=== PATIENT | male | born 1940 | race Hispanic/Latino ===

== ENCOUNTER → 2017-06-04 | Day surgery (SDC) | payer OTHER ==
[2017-05-31 16:51] LABS: BASOPHILS # (AUTO) 0.1 (0.0-0.1); BASOPHILS % 0.7 % (0.0-1.0); EOSINOPHILS # (AUTO) 0.1 (0.0-0.4); EOSINOPHILS % 1.7 % (0.0-6.0); HEMATOCRIT 36.3 % (38.2-49.6); HEMOGLOBIN 12.2 g/dL (14.0-18.0); LYMPHOCYTES # (AUTO) 1.5 (1.0-3.2); LYMPHOCYTES % 22.3 % (18.0-39.1); MEAN CORPUSCULAR HEMOGLOBIN 28.3 pg (28-32); MEAN CORPUSCULAR HGB CONC 33.6 g/dL (31-35); MEAN CORPUSCULAR VOLUME 84.2 fL (81-99); MONOCYTES # (AUTO) 0.5 (0.2-0.8); MONOCYTES % 7.5 % (4.4-11.3); NEUTROPHILS # (AUTO) 4.7 (2.1-6.9); NEUTROPHILS % 67.5 % (38.7-80.0); PLATELET COUNT 244 x10e3/uL (140-360); RED BLOOD COUNT 4.31 x10e6/uL (4.3-5.7); RED CELL DISTRIBUTION WIDTH 13.1 % (11.7-14.4)
[~2017-06-04] MED LIST: BENAZEPRIL-HCT1 EAC3 PO; FENOFIBRATE145 MG PO; METOPROLOL SUCC25 MG PO; NEXIUM40 MG PO; PROPOFOL IV EMULSION 10 MG/ML 50 ML VIAL ONE; RENAVITE PO; SIMVASTATIN40 MG PO; SODIUM CHLORIDE 0.9% 500ML 500 ML ONE; TAMSULOSIN HCL0.4 MG PO; VITAMIN D32000 UNI1 PO
--- OUTSIDE RECORDS SUMMARY | 2017-06-04 11:40 | XMS REPORT | Clinical Summary ---
Author Author [facility] Address Unknown Phone Unavailable Care Team Providers Care Vending Machine Operator Name Role Phone PCP Unavailable Allergies No Known Allergies Current Medications Prescription Sig. Disp. Refills Start End Date Status Date tamsulosin (FLOMAX) 0.4 Take 0.4 mg by mouth Active mg Cp24 24 hr capsule daily . esomeprazole (NEXIUM) 40 Take 40 mg by mouth Active MG capsule daily. simvastatin (ZOCOR) 40 MG Take 40 mg by mouth Active tablet nightly. B-complex with vitamin C Take 1 tablet by mouth 30 tablet 11 09/12/19 09/12/19 Active (NEPHRO-DONATO) tablet daily. 17 18 fenofibrate (LOFIBRA) 54 Take 54 mg by mouth 09/12/19 Discontin MG tablet daily. 17 ued Active Problems Patient Care Coordination Note Dr. Rah Shepherd - PCP O: [phone] Dr. 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) 09/11/2016 Orders Only Transplant Hepatology Giles Liu MD Awaiting transplantation of kidney;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) 09/11/2016 Evaluation Transplant Giles Liu MD 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) (Primary Dx);Hyperlipidemia, unspecified hyperlipidemia type;Benign nodular prostatic hyperplasia without lower urinary tract symptoms;Pre-transplant evaluation for chronic kidney disease;Bilateral hearing loss, unspecified hearing loss type 09/11/2016 Evaluation Transplant Giles Liu MD 09/05/2016 Documentation Transplant Karla Forman 09/03/2016 Documentation Transplant Karla Forman 07/12/2016 Abstract Transplant Jason Coppola 07/11/2016 Telephone Transplant Jason Coppola Appointment after 06/03/2016 Family History Medical History Relation Name Comments Unremarkable Brother x5 Cancer Father skin cancer Kidney failure Paternal 2 uncles; live in [place] Uncle Cancer Sister Unremarkable Sister x3 Relation Name Status Comments Brother x5 Alive Father Mother Alive Paternal Uncle Sister Sister x3 Alive Social History Tobacco Use Types Packs/Day Years Used Date Former Smoker Cigarettes 1 15 Quit: 11/23/1984 Smokeless Tobacco: Never Used Alcohol Use Drinks/Week oz/Week Comments No Sex Assigned at Date Recorded Not on file Last Filed Vital Signs Vital Sign Reading Time Taken Blood Pressure 113/54 09/11/2016 2:19 PM CDT Pulse 88 09/11/2016 2:19 PM CDT Temperature 36.7 C (98.1 F) 09/11/2016 11:20 AM CDT Respiratory Rate 20 09/11/2016 2:19 PM CDT Oxygen Saturation - - Inhaled Oxygen - - Concentration Weight 70.5 kg (155 lb 8 oz) 09/11/2016 11:20 AM CDT Height 167.6 cm (5' 6") 09/11/2016 11:20 AM CDT Body Mass Index 25.1 09/11/2016 11:20 AM CDT Plan of Treatment Health Maintenance Due Date Last Done Comments INFLUENZA VACCINE 12/30/2016 Results * Flow PRA Class II (04/30/2017 11:32 AM) Component Value Ref Range Flow Class II Percent 0 Positive Flow Class Report Comments Specimen Performing Laboratory Blood [facility] HLA TESTING [facility] [place], [place]: [id number] [place] [address] * Flow PRA Class I (04/30/2017 11:32 AM) Component Value Ref Range Flow Class I Percent 0 Positive Flow Class Report Comments Specimen Performing Laboratory Blood [facility] [place] [place]: [id number] [place] [address] * Flow PRA Class I and II (01/08/2017 9:06 AM) Only the most recent of 3 results within the time period is included. Component Value Ref Range Date of Serum [id number] Serum# [id number] Flow PRA Class I and II See Scanned Report Specimen Performing Laboratory Blood [facility] IMMUNE EVALUATION LAB [facility] [place], [place]:BCM [address] [id number] * Stress Echo With Tracing (09/11/2016 1:48 PM) Specimen Performing Laboratory [facility]ocardiography [facility] [address] [facility] [address] [place] [id number] Voice:[phone] Transthoracic Echocardiogram Pat.Name:Perla MANN.ID:[id number] .Date: 09/11/2016 Refer.MD:GILES LIU Exam Time: 1:48:00 PMStudy Type:Echo Complete Height:66inWeight:156lb BSA: 1.8 k3SPHWqf:1940,76Y Sex: MALEBP: 124/71 HR:61 bpmSonogrphr: Margret Us RDCS Pat. Stat.:OutpatientRoom:OP Reason for Study:Pre-surgical evaluation of organ transplant History / Clinical:ESRD, Hyperlipidemia, Hypertension Procedures:STRESS ECHO, Dobutamine Race: SUMMARY: Overall Stress Interp: Normal Stress echo. No evidence of ischemia. Resting echocardographic study is normal with normal chamber sizes and wall motion throughout. Dobutamine infusion was carried out to a peak dose of 30 mcg/kg/min. No chest pain or ischemic EKG changes were found. Target HR 122 HR achieved 122 BP response to stress: appropriate HR response: appropriate Echocardiography was performed throughout the study.Wall motion was enhanced in all regions with no segmental abnormalities noted. In conclusion, the study strongly rules against clinically threatening coronary artery disease. These findings are consistent with low risk stress findings. FINDINGS: RESTING FINDINGS RV: RV function is normal. RV wall motion is normal. LV: Overall wall motion is normal. LV function is normal. EstimatedEF is >60%. All golden are normal STRESS FINDINGS RV: RV function is normal. LV: LV function is hyperdynamic. Overall stress wall motion is normal.Estimated EF is >70%. All golden are normal STRESS: Baseline Vital Signs:Intervention: Dobutamine ECG: NormalPeak Dose: 30 mcg/kg/ min Stress Test Results: Max HR:122 Target HR: 122 % Target:100 % Symptoms and Complications: Arrhythmias: None Overall Stress Interp: Normal Stress echo. No evidence of ischemia. Stress ECG Interp: No ischemic S-T changes occurred with stress WALL MOTION: RESTING WALL MOTION: All golden are normal Wall Index=1 STRESS WALL MOTION: All golden are normal Stress Wall Index=1 Signed 09/11/2016 04:57 PM Azam Patrick M.D. Procedure Note Interface, External Ris In - 09/11/2016 4:58 PM CDT Echocardiography Laboratory [address] [place] [address] Voice: [phone] Transthoracic Echocardiogram Pat.Name: ALEJANDRO MANN Pat.ID: [id number] St.Date: 09/11/2016 Refer.MD: GILES LIU Exam Time: 1:48:00 PM Study Type:Echo Complete Height: 66in Weight: 156lb BSA: 1.8 m2 Age: 2 1940,76Y Sex: MALE BP: 124/71 HR: 61 bpm Sonogrphr: Margret Us [facility] Pat. Stat.:Outpatient Room: OP Reason for Study:Pre-surgical evaluation of organ transplant History / Clinical:ESRD, Hyperlipidemia, Hypertension Procedures:STRESS ECHO, Dobutamine Race: SUMMARY: Overall Stress Interp: Normal Stress echo. No evidence of ischemia. Resting echocardographic study is normal with normal chamber sizes and wall motion throughout. Dobutamine infusion was carried out to a peak dose of 30 mcg/kg/min. No chest pain or ischemic EKG changes were found. Target HR 122 HR achieved 122 BP response to stress: appropriate HR response: appropriate Echocardiography was performed throughout the study. Wall motion was enhanced in all regions with no segmental abnormalities noted. In conclusion, the study strongly rules against clinically threatening coronary artery disease. These findings are consistent with low risk stress findings. FINDINGS: RESTING FINDINGS RV: RV function is normal. RV wall motion is normal. LV: Overall wall motion is normal. LV function is normal. Estimated EF is >60%. All golden are normal STRESS FINDINGS RV: RV function is normal. LV: LV function is hyperdynamic. Overall stress wall motion is normal. Estimated EF is >70%. All golden are normal STRESS: Baseline Vital Signs: Intervention: Dobutamine ECG: Normal Peak Dose: 30 mcg/kg/min Stress Test Results: Max HR: 122 Target HR: 122 % Target: 100 % Symptoms and Complications: Arrhythmias: None Overall Stress Interp: Normal Stress echo. No evidence of ischemia. Stress ECG Interp: No ischemic S-T changes occurred with stress WALL MOTION: RESTING WALL MOTION: All golden are normal Wall Index=1 STRESS WALL MOTION: All golden are normal Stress Wall Index=1 Signed 09/11/2016 04:57 PM Azam Patrick M.D. * 2D Echo W/Doppler(CW/PW/Color) (09/11/2016 12:59 PM) Component Value Ref Range Ejection Fraction LV EF 70.5 % (63-77) Index 39.2 %/m2 Specimen Performing [facility] [address] [place] [address] Voice:[phone] Transthoracic Echocardiogram Pat.Name:Perla MANN.ID:[id number] St.Date: 09/11/2016 Refer.MD:Noe Nuno Exam Time: 12:59:00 PM Study Type:Echo Complete Height:66inWeight:156lb BSA: 1.8 h4TQJQmt:1940,76Y Sex: MALEBP: 124/71 HR:61 bpmSonogrphr: Margret Us RDCS Pat. Stat.:OutpatientRoom:OP Reason for Study:Pre-surgical evaluation of organ transplant History / Clinical:ESRD, Hyperlipidemia, Hypertension Procedures:2D ECHO W/ DOPPLER (CW/PW/COLOR) Race: SUMMARY: Left ventricular chamber size (by vol index) is normal (male - LVED vol - 34-74 ml/m2). No evidence of LV hypertrophy. All of the LV segments contract normally. Estimated LVEF by qualitative assessment is normal (> 60%). LV absolute global longitudinal strain (GLS) is: -24.1% The right ventricular chamber size and systolic function are within normal limits. The estimated RA pressure by IVC dynamics 0-5 mmHg. FINDINGS: LV: All of the LV segments contract normally. Global LV systolic functionis normal. Left ventricular chamber size (by vol index)is normal (male - LVED vol - 34-74 ml/m2). No evidenceof LV hypertrophy. Grade 1 diastolic dysfunction (impairedrelaxation and low-normal LA pressure). Estimated LVEFby qualitative assessment is normal (> 60%). LV absoluteglobal longitudinal strain (GLS) is: -24.1% LA: LA size is normal (16-34 ml/m2). RV: The right ventricular chamber size and systolic function are withinnormal limits. RA: RA cavity size is normal. AV: Normal AoV structure and function by limited views and Doppler. MV: Normal MV structure and function. TV: Normal TV structure and function by available views and Doppler.Unable to estimate peak systolic PA pressure; inadequateTR velocity signal. PV: Mild pulmonary regurgitation. Normal PV structure appears normalby available views. Pericard: An echo lucent space is noted consistent with prominent pericardialfat pad. Systemic Veins: The inferior vena cava size is small. The estimated RA pressureby IVC dynamics 0-5 mmHg. Comparison: No prior exam available for comparison. Quality:Technically adequate exam. MEASUREMENTS: 2D LV EF SinglePlane LV Ad 25.5 cm2(9.5-22.3)* LV CO 3.12 l/min LV As 11.9 cm2(4-11.6)* LV CI 1.73 l/min/m2 LVEDV 71.3 ml (65-193) Index39.6 ml/m2 LV SV 50.3 ml LVESV 21 mlHR 62 bpm Left Ventricle LV A% 53.4 %(36-64) LA Sng Plane LA Vol23.9 mlIndex 13.3 ml/m2 LA Area 12.1 cm2(8.8-23.4) Parasternal Long [place] Ao An 2.28 cm (1.4-2.6) LV%fs 49.1 %(25-46)* Ao Rtd3.47 cmLVPWd 0.948 cm IVSd 0.969 cm LA Ds 3.04 cm (2.3-3.9) LVIDd 3.73 cm (4.3-5.1)* LV Wmn 0.959 cm LVIDs1.9 cm (2-4)* DOPPLER LVOT LVOT For Flow MGAErhZxo517 cm/s (70-110)* LVOT CO 5.53 l/min LVOT VTI20.5 cmLVOT CI 3.07 l/min/m2 LVOTpkPG4.96 mmHgLVOT Area 4.08 cm2 LVOTmnPG2.26 mmHgHR 66 bpm LVOT SV 83.9 ml Aortic Valve AV DI0.704 SVi (LVOT) 46.6 LVOT AV For Flow/LORETTA AV pkVel 144 cm/s (100-170) AV AC/ET 0.2 AV mnVel98.5 cm/sAVpkAcRt 8754 cm/s2 AV pkPG 8.29 mmHgAV DeRt 486 cm/s2 AV mnPG 4.53 mmHgArea (VTI) 2.87 cm2(3-5)* AV VTI29.2 cmArea (Get) 3.16 cm2(3-5) AV ET296 msec AV AC 59 msec (83-118)* MV E/A Ratio MV pkE52.2 cm/s (60-130)* MV E/A 0.828 MV pkA63 cm/s PV Pressure Half Time PV P1/2t 342 msec DEFAULT DEFA Em 10.8 cm/sDEFA E/Em 4.91 Signed 09/11/2016 05:00 PM Azam Patrick M.D. Procedure Note Interface, External Ris In - 09/11/2016 5:00 PM CDT Echocardiography Laboratory [address] [place] [address] Voice: [phone] Transthoracic Echocardiogram Pat.Name: ALEJANDRO MANN Pat.ID: [id number] St.Date: 09/11/2016 Refer.MD: oNe Nuno Exam Time: 12:59:00 PM Study Type:Echo Complete Height: 66in Weight: 156lb BSA: 1.8 m2 Age: 2 1940,76Y Sex: MALE BP: 124/71 HR: 61 bpm Sonogrphr: Margret Us RDCS Pat. Stat.:Outpatient Room: OP Reason for Study:Pre-surgical evaluation of organ transplant History / Clinical:ESRD, Hyperlipidemia, Hypertension Procedures:2D ECHO W/ DOPPLER (CW/PW/COLOR) Race: SUMMARY: Left ventricular chamber size (by vol index) is normal (male - LVED vol - 34-74 ml/m2). No evidence of LV hypertrophy. All of the LV segments contract normally. Estimated LVEF by qualitative assessment is normal (> 60%). LV absolute global longitudinal strain (GLS) is: -24.1% The right ventricular chamber size and systolic function are within normal limits. The estimated RA pressure by IVC dynamics 0-5 mmHg. FINDINGS: LV: All of the LV segments contract normally. Global LV systolic function is normal. Left ventricular chamber size (by vol index) is normal (male - LVED vol - 34-74 ml/m2). No evidence of LV hypertrophy. Grade 1 diastolic dysfunction (impaired relaxation and low-normal LA pressure). Estimated LVEF by qualitative assessment is normal (> 60%). LV absolute global longitudinal strain (GLS) is: -24.1% LA: LA size is normal (16-34 ml/m2). RV: The right ventricular chamber size and systolic function are within normal limits. RA: RA cavity size is normal. AV: Normal AoV structure and function by limited views and Doppler. MV: Normal MV structure and function. TV: Normal TV structure and function by available views and Doppler. Unable to estimate peak systolic PA pressure; inadequate TR velocity signal. PV: Mild pulmonary regurgitation. Normal PV structure appears normal by available views. Pericard: An echo lucent space is noted consistent with prominent pericardial fat pad. Systemic Veins: The inferior vena cava size is small. The estimated RA pressure by IVC dynamics 0-5 mmHg. Comparison: No prior exam available for comparison. Quality: Technically adequate exam. MEASUREMENTS: 2D LV EF SinglePlane LV Ad 25.5 cm2 (9.5-22.3)* LV CO 3.12 l/min LV As 11.9 cm2 (4-11.6)* LV CI 1.73 l/min/m2 LVEDV 71.3 ml (65-193) Index 39.6 ml/m2 LV SV 50.3 ml LVESV 21 ml HR 62 bpm Left Ventricle LV A% 53.4 % (36-64) LA Sng Plane LA Vol 23.9 ml Index 13.3 ml/m2 LA Area 12.1 cm2 (8.8-23.4) Parasternal Long [place] Ao An 2.28 cm (1.4-2.6) LV%fs 49.1 % (25-46)* Ao Rtd 3.47 cm LVPWd 0.948 cm IVSd 0.969 cm LA Ds 3.04 cm (2.3-3.9) LVIDd 3.73 cm (4.3-5.1)* LV Wmn 0.959 cm LVIDs 1.9 cm (2-4)* DOPPLER LVOT LVOT For Flow LVOTpkVel 111 cm/s (70-110)* LVOT CO 5.53 l/min LVOT VTI 20.5 cm LVOT CI 3.07 l/min/m2 LVOTpkPG 4.96 mmHg LVOT Area 4.08 cm2 LVOTmnPG 2.26 mmHg HR 66 bpm LVOT SV 83.9 ml Aortic Valve AV DI 0.704 SVi (LVOT) 46.6 LVOT AV For Flow/LORETTA AV pkVel 144 cm/s (100-170) AV AC/ET 0.2 AV mnVel 98.5 cm/s AVpkAcRt 8754 cm/s2 AV pkPG 8.29 mmHg AV DeRt 486 cm/s2 AV mnPG 4.53 mmHg Area (VTI) 2.87 cm2 (3-5)* AV VTI 29.2 cm Area (Get) 3.16 cm2 (3-5) AV ET 296 msec AV AC 59 msec (83-118)* MV E/A Ratio MV pkE 52.2 cm/s (60-130)* MV E/A 0.828 MV pkA 63 cm/s PV Pressure Half Time PV P1/2t 342 msec DEFAULT DEFA Em 10.8 cm/s DEFA E/Em 4.91 Signed 09/11/2016 05:00 PM Azam Patrick M.D. * Hepatitis B surface antibody (09/11/2016 10:34 AM) Component Value Ref Range Hep B S Ab 56.7 (H) <8.0 mIU/mL Specimen Performing Laboratory Blood [address] [address] * PSA (09/11/2016 10:34 AM) Component Value Ref Range PSA 0.1 0.0 - 4.0 ng/mL Specimen Performing Laboratory Blood [address] [address] after 06/03/2016
--- OUTSIDE RECORDS SUMMARY | 2017-06-04 11:41 | XMS REPORT ---
Author Author [facility] Address Unknown Phone Unavailable Care Team Providers Care Traffic Control Flagger Name Role Phone KATEI OLIVEIRA Unavailable Unavailable YVONNE PETERSEN Unavailable Unavailable Problems This patient has no known problems. Allergies, Adverse Reactions, Alerts This patient has no known allergies or adverse reactions. Medications This patient has no known medications. Results Test Description Test Time Test Comments Text Results Atomic Results Result Comments FLOW PRA CLASS I AND II 2017-01-14 11:41:00 DATE OF SERUM (BEAKER) (test mrdo=0607) [id number] SERUM # (BEAKER) (test lzus=7648) [id number] FLOW PRA CLASS I AND II (test xngv=2291) See Scanned Report FLOW PRA CLASS I AND [id number] 15:31:00* Test Item Value Reference Range Comments DATE OF SERUM (BEAKER) (test wulb=1939) [id number] SERUM # (BEAKER) (test tetu=1112) [id number] FLOW PRA CLASS I AND II (test nioy=0695) See Scanned Report [id number] 12:13:00* Test Item Value Reference Range Comments PROSTATE SPECIFIC ANTIGEN (BEAKER) (test yqhw=535) 0.1 ng/mL 0.0-4.0 HEPATITIS B SURFACE [id number] 12:13:00* Test Item Value Reference Range Comments HEPATITIS B SURFACE ANTIBODY (BEAKER) (test imni=628) 56.7 mIU/mL <8.0 FLOW PRA CLASS I AND [id number] 13:35:00* Test Item Value Reference Range Comments DATE OF SERUM (BEAKER) (test jhpn=1711) [id number] SERUM # (BEAKER) (test piik=0285) [id number] FLOW PRA CLASS I AND II (test aibs=7413) See Scanned Report FLOW PRA CLASS I AND [id number] 15:57:00* Test Item Value Reference Range Comments DATE OF SERUM (BEAKER) (test cejn=0443) [id number] SERUM # (BEAKER) (test ejce=7680) [id number] FLOW PRA CLASS I AND II (test ykiu=2259) See Scanned Report
== END | disposition home or self-care (01) ==
LOC: OR 11:38
PROVIDERS: ATTEND Internal Medicine Gastroenterology
DX: Z12.11 Encounter for screening for malignant neoplasm of colon (principal); D12.0 Benign neoplasm of cecum; D12.2 Benign neoplasm of ascending colon; D12.3 Benign neoplasm of transverse colon; D12.4 Benign neoplasm of descending colon; K62.1 Rectal polyp; K52.9 Noninfective gastroenteritis and colitis, unspecified; K64.8 Other hemorrhoids; E78.5 Hyperlipidemia, unspecified; K21.9 Gastro-esophageal reflux disease without esophagitis; I12.0 Hypertensive chronic kidney disease with stage 5 chronic kidney disease or end stage renal disease; N18.6 End stage renal disease; Z01.810 Encounter for preprocedural cardiovascular examination; Z01.812 Encounter for preprocedural laboratory examination; Z99.2 Dependence on renal dialysis; Z87.891 Personal history of nicotine dependence
CPT/HCPCS: 36415 ×2; 45380; 45384; 45385; 84132; 85025; 93005; J7040

== ENCOUNTER → 2019-03-05 | Day surgery (SDC) | payer OTHER ==
[2019-03-04 13:56] LABS: BASOPHILS % 0.5 % (0.0-1.0); EOSINOPHILS # (AUTO) 0.2 (0.0-0.4); EOSINOPHILS % 3.4 % (0.0-6.0); HEMATOCRIT 38.8 % (38.2-49.6); HEMOGLOBIN 12.4 g/dL (14.0-18.0); LYMPHOCYTES # (AUTO) 1.2 (1.0-3.2); LYMPHOCYTES % 20.8 % (18.0-39.1); MEAN CORPUSCULAR HEMOGLOBIN 29.1 pg (28-32); MEAN CORPUSCULAR VOLUME 91.1 fL (81-99); MONOCYTES # (AUTO) 0.5 (0.2-0.8); MONOCYTES % 9.5 % (4.4-11.3); NEUTROPHILS # (AUTO) 3.7 (2.1-6.9); NEUTROPHILS % 65.4 % (38.7-80.0); PLATELET COUNT 221 x10e3/uL (140-360); RED BLOOD COUNT 4.26 x10e6/uL (4.3-5.7)
[~2019-03-05] MED LIST changes: +ASPIR 8181 MG PO; +CARVEDILOL3.125 MG PO; +PHENYLEPHRINE HCL 1% 10 MG/ML VIAL ONE
[2019-03-05 10:25] VITALS: BP 111/54
== END | disposition home or self-care (01) ==
LOC: OR 07:00
PROVIDERS: ATTEND Internal Medicine Gastroenterology
DX: Z12.11 Encounter for screening for malignant neoplasm of colon (principal); K64.8 Other hemorrhoids; E66.3 Overweight; I12.0 Hypertensive chronic kidney disease with stage 5 chronic kidney disease or end stage renal disease; N18.6 End stage renal disease; Z79.82 Long term (current) use of aspirin; Z99.2 Dependence on renal dialysis; Z68.25 Body mass index [BMI] 25.0-25.9, adult
CPT/HCPCS: 36415 ×2; 84132; 85025; 93005; G0121; J2370; J2704; J7040; 45378